=== PATIENT | male | born 1965 | race Caucasian/White ===

== ENCOUNTER → 2017-02-19 | Outpatient (CLI) | payer BC, OTHER ==
--- NOTE | 2017-02-20 07:10 | EKG ---
[address] [address] Measurements Intervals [place] Rate: 56 P: 49 [place]: 151 QRS: 34 QRSD: 94 T: 37 QT: 437 QTc: 430 Interpretive Statements SINUS BRADYCARDIA No previous ECG available for comparison Electronically Signed On 02-20-17 08:01:50 MDT by Que Montoya MD [email or web address]
== END ==
LOC: LAB 16:40
PROVIDERS: ATTEND Orthopaedic Surgery Orthopaedic Surgery of the Spine
DX: Z01.812 Encounter for preprocedural laboratory examination (principal); Z01.810 Encounter for preprocedural cardiovascular examination; D17.79 Benign lipomatous neoplasm of other sites; R00.1 Bradycardia, unspecified
CPT/HCPCS: 36415; 85014; 93005; 93010